=== PATIENT | female | born 1980 | race Caucasian/White ===

== ENCOUNTER 2017-07-04 14:17 | Emergency (ER) | payer BC ==
[2017-07-04 14:45] LABS: #Basophils 0.1 thou/uL (0.0-0.2); #Eosinphils 0.1 thou/uL (0.0-0.7); #Lymphocytes 2.4 thou/uL (1.20-3.40); #Monocytes 0.7 thou/uL (0.11-0.59); #Neutrophils 5.7 thou/uL (1.40-6.50); %Basophils 0.8 % (0.0-1.0); %Eosinophils 1.2 % (0.0-10.0); %Lymphocytes 26.6 % (21.0-51.0); %Monocytes 7.6 % (0.0-10.0); Hematocrit 41.1 % (36.0-47.0); Mean Platelet Volume 7.5 fL (7.4-10.4); Red Blood Cell (RBC) Count 4.31 mill/uL (4.20-5.40)
[2017-07-04 15:07] LABS: ALT (SGPT) 22 U/L (8-55); AST (SGOT) 23 U/L (5-34); Alkaline Phosphatase 57 U/L (40-150); Anion Gap 12 mmol/L (10-20); BUN (Urea Nitrogen) 16 mg/dL (7.0-18.7); Bilirubin, Total 0.6 mg/dL (0.2-1.2); Calc. Creatinine Clearance 0 mL/min (70-130); Calcium 9.6 mg/dL (7.8-10.44); Carbon Dioxide 27 mmol/L (22-29); Chloride 103 mmol/L (98-107); Estimated GFR-MDRD 82; Globulin 3.1 g/dL (2.4-3.5); Protein, Total 7.6 g/dL (6.0-8.3)
[2017-07-04 16:08] LABS: Troponin I Less than 0.010 ng/mL (< 0.028)
--- NOTE | 2017-07-04 16:25 | RAD ---
2 VIEW CHEST: Date: 07/04/17 INDICATION: Hypertension. Chest pain. FINDINGS: The cardiac silhouette is within normal limits of size. There is no consolidation or effusion. Postsu rgical changes of cervical spine present. Osseous structures are intact. IMPRESSION: No focal consolidation. POS: [facility]
--- NOTE | 2017-07-24 10:43 | EKG ---
Test Reason : Blood Pressure : / mmHG Vent. Rate : 067 BPM Atrial Rate : 067 BPM P-R Int : 148 ms QRS Dur : 096 ms QT Int : 424 ms P-R-T Axes : 050 055 014 degrees QTc Int : 448 ms Normal sinus rhythm Incomplete right bundle branch block Nonspecific T wave abnormality Abnormal ECG Confirmed by SHEREE Schmitz, MARU ([id number]), deputy editor in chief [facility] ([id number] on 07/24/2017 10:42:47 AM Referred By: Confirmed By:MARU BENTLEY M.D.
== END 2017-07-04 17:21 | disposition home or self-care (01) ==
LOC: ERS 14:17
DX: I10 Essential (primary) hypertension (principal); R51 Headache; M54.9 Dorsalgia, unspecified; F42.9 Obsessive-compulsive disorder, unspecified; F60.5 Obsessive-compulsive personality disorder; F17.210 Nicotine dependence, cigarettes, uncomplicated; Z87.442 Personal history of urinary calculi
CPT/HCPCS: 36415; 71020; 80053; 82553; 84484; 84703; 85025; 93005; 99406